=== PATIENT | male | born 1940 | race Caucasian/White ===

== ENCOUNTER 2016-05-21 07:40 | Day surgery (SDC) | payer OTHER, MEDICARE ==
[2016-05-21] MEDS ORDERED: ONDANSETRON 4 MG/2 ML VIAL IVP ONE (07:48)
[2016-05-21] MEDS ORDERED: NS 1,000 ML IV SCH (08:00)
[2016-05-21] MEDS ORDERED: SODIUM TETRADECYL SULFATE 60 MG/2 ML VIAL IV ONE (08:21)
[2016-05-21] MEDS ORDERED: LIDO/EPI 1% **for epidural** 30 ML SDV ONE (08:21)
[2016-05-21] MEDS ORDERED: MIDAZOLAM 2 MG/2 ML VIAL ONE ×2 (08:54→10:05)
[2016-05-21] MEDS ORDERED: fentaNYL 100 MCG/2 ML INJ ONE ×2 (08:55→10:05)
--- NOTE | 2016-05-21 19:26 | IR ---
Laser ablation, left lesser saphenous vein Multivessel sclerotherapy Indication: Left posterior ankle ulceration. Superficially located great saphenous system that did no t show any reflux. Refluxing lesser saphenous system. Informed consent: Obtained from the patient. Risks and benefits were discussed. Crosscutting Measure: Patient's current list of medications including all known prescriptions, over- the-counters, herbals, and vitamin/mineral/dietary supplements are reviewed. Medications' name, dosa ge, frequency, and route of administration are confirmed. patient is a non-smoker. Prophylactic Antibiotic: Cefazolin was not ordered and administered for antimicrobial prophylaxis be cause it was not medically necessary. VTE Prophylaxis: There is not an order for VTE prophylaxis to be given within 24 hours of the proced ure end time. VTE prophylaxis was not given because it was not medically necessary. Technique: Patient was placed in prone position. A "timeout" procedure was performed to identify th e correct patient and the correct procedure. 1% Xylocaine was used for local anesthetic. All eleme nts of maximal sterile barrier technique including cap, mask, sterile gown, sterile gloves, large lorri rile sheet, hand hygiene, and 2% chlorhexidine for cutaneous antisepsis, followed. Ultrasound evaluation of potential access site was performed. After successfully identifying a patent vessel, ultrasound guidance was used to puncture the vessel. A permanent recording was created for t he patient's record. When ultrasound is used, sterile gel and probe covers are used. The lesser saphenous system was identified, and was punctured under ultrasound guidance using a Micro puncture needle at the level of the ankle. Access was then maintained by the Micropuncture sheath. 1% SDS Microfoam sclerotherapy was performed focusing at the distal ankle back office medical assistant and multiple gre at saphenous tributaries. Tumescent anesthesia was delivered along the course of the lesser saphenous system and ablation was p erformed. The entire leg was then dressed in a compression stocking, knee height, prior to discharge. Medication: 125 mcg fentanyl, 2.5 mg Versed, 0948 to 1028 hours. Impression: 1. 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 2. Treatment of multiple tributaries and back office medical assistant by sclerotherapy. Plan: 1. Continued dressing change at home for his wound care for ulceration. 2. Knee-high compression stocking for 5 days around the clock, including sleep, then only during awak e hours. 3. Follow up in one month.
== END 2016-05-21 11:55 | disposition home health service (06) ==
LOC: FIMAGING 07:40
PROVIDERS: ATTEND Radiology Diagnostic Radiology
PROC: [UNRECOGNIZED PROCEDURE] (principal; 2016-05-21 10:38)
PROC: 3E033TZ Introduction of Destructive Agent into Peripheral Vein, Percutaneous Approach (ICD-10-PCS; principal; 2016-05-21 10:38)
DX: I83.003 Varicose veins of unspecified lower extremity with ulcer of ankle (principal)
CPT/HCPCS: J2250; J3010

== ENCOUNTER → 2016-06-06 | Outpatient (CLI) | payer OTHER, MEDICARE ==
--- NOTE | 2016-06-06 12:22 | DX ---
PA and Lateral Chest - June 06, 2016 Clinical Indications: Follow up right pleural effusion best demonstrated on CT scan of the chest of May 02, 2016. Findings: No focal pulmonary consolidation is identified. Minimal blunting of the right costophrenic angle persists, which could reflect a small right pleural effusion decreased in size. There is hypere xpansion seen with flattening of the hemidiaphragms noted. The heart size and pulmonary vascularity a re normal. Pleural surfaces and bony thorax are negative for acute abnormality. Impression: 1. Possible minimal persistent right pleural effusion. 2. Hyperexpansion suggests COPD.
== END ==
LOC: BMCIMAGING 11:08
PROVIDERS: ATTEND Internal Medicine Critical Care Medicine
DX: R91.8 Other nonspecific abnormal finding of lung field (principal)

== ENCOUNTER → 2017-06-12 | Outpatient (CLI) | payer OTHER, MEDICARE ==
[~2017-06-12] MED LIST: IOPAMIDOL (ISOVUE-300) 100 ML BTL ONE
== END ==
LOC: BMCIMAGING 09:48
PROVIDERS: ATTEND Internal Medicine
DX: Z13.820 Encounter for screening for osteoporosis (principal); M81.0 Age-related osteoporosis without current pathological fracture; K86.2 Cyst of pancreas
CPT/HCPCS: 74177; Q9967

== ENCOUNTER → 2017-11-25 | Outpatient (CLI) | payer OTHER, MEDICARE | LOC: BMCIMAGING 09:37 | PROVIDERS: ATTEND Internal Medicine | DX: R05 Cough (principal) ==

== ENCOUNTER → 2018-06-16 | Outpatient (CLI) | payer OTHER, MEDICARE ==
[~2018-06-16] MED LIST changes: +IOHEXOL 300 mgI/ML (OMNIPAQUE) 150 ML BTL IV ONE; -IOPAMIDOL (ISOVUE-300) 100 ML BTL ONE
== END ==
LOC: FIMAGING 09:39
PROVIDERS: ATTEND Internal Medicine
DX: K86.2 Cyst of pancreas (principal); K80.20 Calculus of gallbladder without cholecystitis without obstruction; N20.0 Calculus of kidney; N28.1 Cyst of kidney, acquired; M47.895 Other spondylosis, thoracolumbar region
CPT/HCPCS: 74177; Q9967

== ENCOUNTER → 2018-09-19 | Outpatient (CLI) | payer OTHER, MEDICARE | LOC: FIMAGING 07:32 | PROVIDERS: ATTEND Radiology Diagnostic Radiology | DX: R21 Rash and other nonspecific skin eruption (principal); M79.89 Other specified soft tissue disorders ==